=== PATIENT | female | born 1960 | race American Indian/Alaskan Native ===

== ENCOUNTER 2024-11-18 18:29 | Emergency (ER) | payer OTHER ==
[~2024-11-18] VITALS: Ht 165.1 cm; Wt 70.8 kg
[2024-11-18] MEDS ORDERED: VENLAFAXINE HC150 M1 (18:46)
[2024-11-18] MEDS ORDERED: ROSUVASTATIN CA10 MG PO (18:46)
[2024-11-18] MEDS ORDERED: VITAMIN D3125 MC1 PO (18:47)
[2024-11-18] MEDS ORDERED: KETOROLAC TROMETHAMINE 60 MG VIAL IM ONE (21:00)
[2024-11-18] MEDS ORDERED: DICLOFENAC SODI75 MG PO (21:31)
[2024-11-18] MEDS ORDERED: NORFLEX100MG PO (21:36)
== END 2024-11-18 21:45 | disposition home or self-care (01) ==
LOC: ER 18:32
DX: S29.8XXA Other specified injuries of thorax, initial encounter (principal); W18.39XA Other fall on same level, initial encounter; Y93.89 Activity, other specified; Y92.89 Other specified places as the place of occurrence of the external cause; Z88.0 Allergy status to penicillin; M81.8 Other osteoporosis without current pathological fracture; F32.9 Major depressive disorder, single episode, unspecified